=== PATIENT | female | born 1980 | race American Indian/Alaskan Native ===

== ENCOUNTER 2016-12-15 23:20 | Inpatient (IN) | payer OTHER ==
[2016-12-15 23:49] LABS: RBC URINE 13 /hpf (0-3); URINE BACTERIA FEW (<OCC); URINE BILIRUBIN NEGATIVE (NEGATIVE); URINE BLOOD 2+ (NEGATIVE); URINE COLOR Yellow (YELLOW); URINE GLUCOSE (UA) NORMAL (Normal); URINE KETONE 1+ mg/dL (NEGATIVE); URINE LEUKOCYTE ESTERASE 3+ Leu/uL (Negative); URINE PROTEIN NEGATIVE (NEGATIVE); URINE UROBILINOGEN NORMAL mg/dL (0.2-1.0); WBC URINE 151 /hpf (0-5)
--- NOTE | 2016-12-16 00:02 | OBHP ---
Datetime: 12/15/2016 23:58 IP Adm Impression: , intrauterine IP Chief Complaint Other: fever IP Admit Plan: Admit to unit Admit Comment, IP Provider: - at 21weeks came with c/o pain on the left side and increase freque ncy and fever since yesterday . no ctxs,vb, lof+fm. 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 to pearl technician ivf cbc/cmp/t *s rocephin urine culture dr jimenez aware Pelvic Type - PN: Adequate Extremities - PN: Normal Abdomen - PN: Normal Back - PN: Normal Breast - PN: Not Done Lungs - PN: Normal Heart - PN: Normal Thyroid - PN: Not Done Neurologic - PN: Normal HEENT - PN: Normal General - PN: Normal FHR - Baseline A Provider: 170 Contraction Comments Provider: no Comments, ACOG Physical Exam: gravid,non tendr ve closed ext no edema,no calf ten +left cva ten EGA AdmitDate IP: 21.2 IP Indication for Induction Oth: pykonephritis IP Chief Complaint: Maternal discomfort NICHD Variability Prov Fetus A: Moderate 6-25bpm Genitourinary Exam: Normal DTRs - PN: Normal
[2016-12-16] MEDS ORDERED: Lactated Ringer's 500 ML IV ONE (00:04)
[2016-12-16 00:48] LABS: HEMATOCRIT 37.3 % (34.0-47.0); MEAN CELL VOLUME 84.9 fL (81.0-99.0); MEAN CORPUSCULAR HEMOGLOBIN 28.7 pg (27.0-31.0); MEAN CORPUSCULAR HGB CONC 33.8 g/dL (33.0-37.0); RED CELL DISTRIBUTION WIDTH 12.6 % (11.5-14.5)
[2016-12-16 00:51] LABS: WHITE BLOOD COUNT 22.8 K/uL (4.8-10.8)
[2016-12-16] MEDS ORDERED: cefTRIAXone 2 GM in Sodium Chloride 0.9% 100 ML IVPB SCH (01:00)
[2016-12-16 01:08] LABS: CHLORIDE 98 mmol/L (98-107); POTASSIUM 4.4 mmol/L (3.6-5.2); SODIUM 132 mmol/L (132-148)
[2016-12-16 01:10] LABS: ALB/GLOB RATIO 1.1 (1.0-2.1); AST/SGOT 22 U/L (14-36); BILIRUBIN,TOTAL 1.1 mg/dL (0.2-1.3); CARBON DIOXIDE 23 mmol/L (22-30); GFR AFRICAN-AMERICAN > 60; TOTAL PROTEIN 8.1 g/dL (6.3-8.3)
[2016-12-16 01:11] LABS: ALKALINE PHOSPHATASE 80 U/L (38-126); ALT/SGPT 24 U/L (9-52); BLOOD UREA NITROGEN 5 mg/dL (7-17); CALCIUM 9.8 mg/dl (8.6-10.4); GLUCOSE,RANDOM 91 mg/dL (65-105)
[2016-12-16] MEDS ORDERED: Acetaminophen-Codeine 300/30 mg Tab PO PRN (04:32)
--- NOTE | 2016-12-16 08:22 | OBPN ---
Datetime: 12/16/2016 08:16 IP Progress Plan Other: Transfer to L_D for expectant management IP Progress Impression: Rupture of membranes IP Informed Consent Obtain: Vaginal Delivery; Risks, Benefits and Alternatives Discussed IP Procedures: Sterile Vag Exam Membranes, Provider: Ruptured Gestation - Est Wks by US: 21.0 Vital Signs Provider: Reviewed; Within Normal Limits Dilatation, Provider: 8 Effacement, Provider: 100 Station, Provider: 0 Datetime: 12/15/2016 23:58 Contraction Comments Provider: no FHR - Baseline A Provider: 170 HEATHER Variability Prov Fetus A: Moderate 6-25bpm
--- NOTE | 2016-12-16 09:00 | OBPN ---
Datetime: 12/16/2016 08:53 IP Progress Plan Other: Put on Ampicillin and Gentamycin IP Progress Impression Other: Patient states has been leaking clear fluid for 3 days requiring IP Progress Impression: Chorioamnionitis IP Informed Consent Obtain: Vaginal Delivery; Risks, Benefits and Alternatives Discussed IP Progress Plan: Antibiotic therapy; Anticipate Vaginal Delivery IP Fetus A Comments: Bedside sonogram revealed Anhydramnios, no heart activity and no mo vement. Gestation - Est Wks by US: 21.0 IP Progress Note Comment: Chorioamninitis, Prolong PPROM. Advanced cervical Dilatation. Put on Antib iotics, Anticipate Vaginal Delivery Vital Signs Provider: Reviewed; Within Normal Limits Datetime: 12/15/2016 23:58 Contraction Comments Provider: none
--- NOTE | 2016-12-16 13:39 | OBPN ---
Datetime: 12/16/2016 13:32 IP Progress Impression: Normal progression of labor IP Informed Consent Obtain: Vaginal Delivery; Risks, Benefits and Alternatives Discussed IP Procedures: Sterile Vag Exam IP Progress Plan: Continue present management; Anticipate Vaginal Delivery Membranes, Provider: Ruptured Gestation - Est Wks by US: 21.0 IP Progress Note Comment: Patient has no urge to push. Will stimulate labor Pitocin infusion. Vital Signs Provider: Reviewed; Within Normal Limits Dilatation, Provider: 10 Effacement, Provider: 100 Station, Provider: 1
[2016-12-16] MEDS ORDERED: Oxytocin 30 UNIT 30 UNITS/500 ML BAG IV ONE (23:25)
[2016-12-17] MEDS ORDERED: Midazolam 2 MG/2 ML VIAL ONE (00:25)
[2016-12-17] MEDS ORDERED: Propofol 10 mg/ml Inj (20 ML) ONE (00:25)
[2016-12-17] MEDS ORDERED: Dexamethasone 4 mg/1 ml IVP PRN (01:05)
[2016-12-17] MEDS ORDERED: DiphenhydrAMINE 50 mg/ml Inj IVP PRN (01:05)
--- NOTE | 2016-12-17 01:13 | OBDS ---
DELIVERY PERSONNEL Delivery Doctor: Jacqueline, K. MD MATERNAL INFORMATION Delivery Anesthesia: None LABOR SUMMARY EDC: 04/26/2017 00:00 VAGINAL DELIVERY Laceration Repair Note: to a non-viable boy. Placenta retained and taken to O.R for removal of p lacenta and curettage BABY A INFORMATION Delivery Date/Time: 12/16/2016 20:45 Method of Delivery: Vaginal SHOULDER DYSTOCIA BABY A Delivery Date/Time: 12/16/2016 20:45 INFANT INFORMATION BABY A Gestational Age at Delivery: 21.2 Sex: Male WEIGHT/LENGTH BABY A Birthweight (gms): 325 Weight (lb): 0 Weight (oz): 11 Length Inches: 25.00 Length cms: 63.5
[2016-12-17] MEDS ORDERED: Lactated Ringer's 1,000 ML IV SCH (01:15)
[2016-12-17 06:37] LABS: HEMATOCRIT 25.4 % (34.0-47.0); MEAN CORPUSCULAR HEMOGLOBIN 28.6 pg (27.0-31.0); MEAN CORPUSCULAR HGB CONC 33.6 g/dL (33.0-37.0); MEAN PLATELET VOLUME 8.7 fL (7.2-11.7); RED CELL DISTRIBUTION WIDTH 12.6 % (11.5-14.5); WHITE BLOOD COUNT 14.8 K/uL (4.8-10.8)
--- NOTE | 2016-12-17 07:30 | OBPPN ---
Datetime: 12/17/2016 07:26 PP Pain Prov: Within normal limits PP Nausea Prov: Denies PP Flatus Prov: Yes PP BM Prov: Yes PP Breasts Prov: Normal PP Heart Prov: Normal PP Lungs Prov: Normal PP Abdomen/Uterus Prov: Normal PP Lochia Prov: Normal PP Vulva/Perineum Prov: Normal PP CVA Tenderness Prov: Normal PP Extremities Prov: Normal PP C/S Incision Prov: Not Applicable PP Progress Prov: Not Applicable PP Comments Phys Exam Prov: Uterus firm and contracted. Lochia minimal PP Impression Prov: Normal progression; Endometritis PP Plan Prov: Continue present management PP Plan Other Prov: Continue IV Antibiotics PP Progress Note Prov: Chorioamnitics. Afebrile. Anemia. Put on iron PO IP PP Procedures: None Vital Signs Provider PP: Reviewed; Within Normal Limits
--- NOTE | 2016-12-17 07:38 | OP ---
PROCEDURE DATE: 12/17/2016 PREOPERATIVE DIAGNOSIS: Retained placenta at delivery of 21 week gestation. POSTOPERATIVE DIAGNOSIS: Retained placenta at delivery of 21 week gestation. PROCEDURE: Removal of placenta and uterine curettage. SURGEON: Dr. Phillips. SHELL TRIM TOOL SETTER: None. ANESTHESIA: General given by Dr. Montanez. FINDINGS: The placenta was entirely retained in the uterus. The cervix was dilated. DESCRIPTION OF PROCEDURE: Under adequate general anesthesia, the patient was placed in the lithotomy position. The perineum and vagina were prepped and draped in the usual sterile fashion. The cervix was then exposed using the bivalved speculum. The anterior lip of the cervix was grasped with ring forceps. The placenta was removed piecemeal using the ring forceps as well as the horseshoe curettes . Large amounts of placenta tissue were removed as well as blood clots. The uterus was felt to be e mpty. The patient was awoken from anesthesia and taken to the recovery room in good condition. The estimated blood loss was about 700 mL. Fluids received were 1000 mL crystalloids. The sponge counts were correct x 2. Rene Phillips MD cc: [id number] TT: 12/17/2016 07:37:25 pa
[2016-12-18 08:18] VITALS: BP 102/68; PULSE 85; RESP 18; TEMP 98; O2SAT 98
--- NOTE | 2016-12-18 13:01 | PCM.PSYCH ---
Initial Psychiatric Evaluation - Initial Psychiatric Evaluation Type of Admission: Voluntary Legal Status: Capacity Chief Complaint (in patient's own words): "I feel okay." History of Present Illness and Precipitating Events: Pt is a 36 year old female who is single and lives by herself. 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 Psychiatry consulted for grief. Pt states she had intrauterine demise at 21 weeks gestation. She is upset and states she "feels awkward." Pt states her sleep has been so-so, and she has a decreased appetite. Pt denies suicidal ideation, hallucinations, paranoia. Pt states she does not use drugs and only drinks alcohol occasionally. Pt states she has a good support system as home, and plans to go back to work upon discharge. Pt states she will also try therapy. Past psych: denies family psych : denies Medical: Denies Current Medications: Active Medications Generic Name Dose Route Start Last Admin Trade Name Freq PRN Reason Stop Dose Admin Acetaminophen 650 mg 12/16/16 00:05 12/16/16 19:36 Tylenol 325mg Tab PO 650 mg Q6 PRN Administration Fever >100.4 F Ferrous Sulfate 325 mg 12/17/16 10:00 12/18/16 09:49 Feosol PO 325 mg TID RERE Administration Ampicillin 2 gm/ Sodium 100 mls @ 50 mls/hr 12/16/16 11:00 12/18/16 10:42 Chloride IVPB 50 mls/hr Q6H RERE Administration Gentamicin Sulfate 80 mg/ 102 mls @ 100 mls/hr 12/16/16 10:00 12/18/16 09:50 Sodium Chloride IVPB 100 mls/hr Q8H RERE Administration Past Psychiatric History - Past Psychiatric History Previous Treatment History: None Pertinent Medical Hx (Current Medical&Sleep Prob, Allergies): Allergies Allergy/AdvReac Type Severity Reaction Status Date / Time No Known Allergies Allergy Verified 12/15/16 23:26 Cephalexin [Keflex] 500 mg PO Q6 #28 capsule 12/17/16 Review of Systems - Review of Systems All systems: reviewed and no additional remarkable complaints except - Psychiatric Psychiatric: Abnormal Sleep Pattern, Change in Appetite, Depression. absent: Hallucinations, Homicidal Ideation, Paranoia, Suicidal Ideation Mental Status Examination - Personal Presentation Personal Presentation: Looks stated age - Affect Affect: Depressed - Motor Activity Motor Activity: Calm - Reliability in Providing Information Reliability in Providing Information: Good - Speech Speech: Organized - Mood Mood: Depressed - Formal Thought Process Formal Thought Process: No Impairment - Obsessions/Compulsions Obsessions: No Compulsions: No - Cognitive Functions Orientation: Person, Place, Situation, Time Sensorium: Alert Attention/Concentration: Attentive Abstract Thinking: [place] Estimate of Intelligence: Average Judgement: Intact, as evidence by: Good judgement Memory: Recent intact, as evidence by: Ability to recall events of the day, Remote intact, as evidenced by: Abilit to recall sig. life events - Strength & Assets Inventory Strength & Assets Inventory: Family support, Employment status - Limitations Limitations: Living alone DSM 5 DX - DSM 5 DSM 5 Diagnosis: Adjustment d/o - with depressive sxs Bereavement - Recommended/Plan of Treatment Treatment Recommendations and Plan of Treatment: Grief/bereavement/depression: - Follow up out-patient therapy - Support and psychoeducation given - Return to ER if gets worse or does not improve 31 min
== END 2016-12-18 17:35 | disposition home or self-care (01) | DRG 767 ==
LOC: C.EROB 23:20 → C.4M 12-16 00:16 → C.4D 12-16 01:16 → C.4M 12-16 03:36 → C.4D 12-16 08:55 → C.4M 12-17 02:55
PROVIDERS: ADMIT Obstetrics & Gynecology; ATTEND Obstetrics & Gynecology
PROC: 10E0XZZ Delivery of Products of Conception, External Approach (ICD-10-PCS; principal; 2016-12-16)
PROC: 10D17ZZ Extraction of Products of Conception, Retained, Via Natural or Artificial Opening (ICD-10-PCS; 2016-12-16)
PROC: GZ56ZZZ Individual Psychotherapy, Supportive (ICD-10-PCS; 2016-12-16)
DX: O36.4XX0 Maternal care for intrauterine death, not applicable or unspecified (principal); O41.1220 Chorioamnionitis, second trimester, not applicable or unspecified; O26.892 Other specified pregnancy related conditions, second trimester; D62 Acute posthemorrhagic anemia; R50.9 Fever, unspecified; F43.29 Adjustment disorder with other symptoms; Z37.1 Single stillbirth; Z3A.21 21 weeks gestation of pregnancy; Z63.4 Disappearance and death of family member; O99.342 Other mental disorders complicating pregnancy, second trimester; O42.012 Preterm premature rupture of membranes, onset of labor within 24 hours of rupture, second trimester

== ENCOUNTER 2018-04-29 17:51 | Emergency (ER) | payer BC, OTHER ==
[2018-04-29 17:56] VITALS: BP 146/95; PULSE 90; TEMP 98; O2SAT 100
[2018-04-29] MEDS ORDERED: Bacitracin 500 Units/gm Oint Foilpak UD TOP ONE (18:39)
[2018-04-29] MEDS ORDERED: Lidocaine 2% Inj (20ml) INFIL ONE (18:39)
[2018-04-29] MEDS ORDERED: Lidocaine 2% MPF (5 ml) Inj ONE (18:46)
[2018-04-29] MEDS ORDERED: Bacitracin 500 Units/gm Oint Foilpak UD ONE (18:48)
--- NOTE | 2018-04-29 19:23 | C.PDOC ---
History Of Present Illness 37 y/o female presents to ED for evaluation of laceration to left thumb sustained at 2am when reaching into a cabinet and blade cut her thumb. Patient denies fever, change in sensation, weakness, or any other complaints at this time. Time Seen by Provider: 04/29/18 18:09 Chief Complaint (Nursing): Abnormal Skin Integrity History Per: Patient History/Exam Limitations: no limitations Onset/Duration Of Symptoms: Hrs Current Symptoms Are (Timing): Still Present Past Medical History Reviewed: Historical Data, Nursing Documentation, Vital Signs Vital Signs: Last Vital Signs Temp 98 F 04/29/18 17:53 Pulse 90 04/29/18 17:53 Resp 18 04/29/18 17:53 BP 146/95 H 04/29/18 17:53 Pulse Ox 100 04/29/18 17:53 - Medical History PMH: Asthma Surgical History: No Surg Hx - [facility] Procedures DELIVERY OF PRODUCTS OF CONCEPTION, EXTERNAL APPROACH (12/16/16) EXTRACTION OF PRODUCTS OF CONCEPTION, RETAINED, VIA OPENING (12/16/16) INDIVIDUAL PSYCHOTHERAPY, SUPPORTIVE (12/16/16) Family History: States: No Known Family Hx - Social History Hx Alcohol Use: Yes Hx Substance Use: No - Immunization History Hx Tetanus Toxoid Vaccination: No Hx Influenza Vaccination: No Hx Pneumococcal Vaccination: No Review Of Systems Musculoskeletal: Positive for: Hand Pain Skin: Negative for: Rash, Bruising Neurological: Negative for: Weakness, Numbness Physical Exam - Physical Exam Appears: Non-toxic, No Acute Distress Skin: Warm, Dry, No Rash, Other (2cm laceration to palmar aspect of left thumb) Head: Atraumatic, Normacephalic Eye(s): bilateral: Normal Inspection, EOMI Oral Mucosa: Moist Neck: Normal ROM, Supple Chest: Symmetrical Respiratory: No Accessory Muscle Use Extremity: Normal ROM, Capillary Refill (<2 seconds), No Deformity, No Swelling Pulses: Left Radial: Normal Neurological/Psych: Oriented x3, Normal Motor, Normal Sensation ED Course And Treatment O2 Sat by Pulse Oximetry: 100 (RA) Pulse Ox Interpretation: Normal Progress Note: Xray was offered though pt declined. Discussed concern for delayed wound closure and strict wound care. Pt agreed upon closure. Discussed signs and symptoms of concern, wound check in2 days and suture removal in 7. Finger splint applied by diesel automotive technician. Laceration - Laceration Repair left thumb Wound Length (In cm): 2cm Description Of Wound: Linear Wound Cleansed With: Betadine, Sterile Saline Anesthesia: Lidocaine 1% Wound Examination: Irrigated With Saline, No FB With Wound Exploration, No Tendon Injury With Wound Exploration Wound Closure: Suture Suture Technique And Material Used: Prolene (5-O) Wound Complexity: Simple Disposition - Disposition Disposition: HOME/ ROUTINE Disposition Time: 19:21 Condition: STABLE Additional Instructions: Wound check in 2 days. Suture removal in 7 days. Watch for signs of infection including redness, swelling, or discharge. Prescriptions: Bacitracin OINT 1 applic TP BID #1 tube Cephalexin [cephalexin] 500 mg PO BID #14 cap Instructions: Laceration Repair With Stitches (DC) Forms: [employer] (Syriac), Work Excuse - Clinical Impression Clinical Impression: Laceration of finger - PA / FIRE MARSHAL / Resident Statement MD/DO has reviewed & agrees with the documentation as recorded. - Scribe Statement The provider has reviewed the documentation as recorded by the Neno Collado All medical record entries made by the Portilloibdelfino were at my direction and personally dictated by me. I have reviewed the chart and agree that the record accurately reflects my personal performance of the history, physical exam, medical decision making, and the department course for this patient. I have also personally directed, reviewed, and agree with the discharge instructions and disposition.
[2018-04-29] MEDS ORDERED: Tdap Vaccine 0.5 ml Vial (10-64 yrs) IM ONE ×2 (19:26→19:30)
[2018-04-29 19:38] VITALS: RESP 20
== END 2018-04-29 19:38 | disposition home or self-care (01) ==
LOC: C.ER 17:51
DX: S61.012A Laceration without foreign body of left thumb without damage to nail, initial encounter (principal); W45.8XXA Other foreign body or object entering through skin, initial encounter

== ENCOUNTER 2018-05-01 09:35 | Emergency (ER) | payer BC ==
[2018-05-01 09:40] VITALS: BMI 37.5
[2018-05-01 09:49] VITALS: BP 122/86; PULSE 18; TEMP 98.4; O2SAT 100
--- NOTE | 2018-05-01 10:24 | C.PDOC ---
Time Seen by Provider: 05/01/18 10:02 Chief Complaint (Nursing): Wound Check Past Medical History Vital Signs: Last Vital Signs Temp 98.4 F 05/01/18 09:40 Pulse 18 L 05/01/18 09:40 Resp 90 H 05/01/18 09:40 BP 122/86 05/01/18 09:40 Pulse Ox 100 05/01/18 09:40 - Medical History PMH: Asthma - [facility] Procedures DELIVERY OF PRODUCTS OF CONCEPTION, EXTERNAL APPROACH (12/16/16) EXTRACTION OF PRODUCTS OF CONCEPTION, RETAINED, VIA OPENING (12/16/16) INDIVIDUAL PSYCHOTHERAPY, SUPPORTIVE (12/16/16) - Social History Hx Alcohol Use: Yes Hx Substance Use: No - Immunization History Hx Tetanus Toxoid Vaccination: No Hx Influenza Vaccination: No Hx Pneumococcal Vaccination: No ED Course And Treatment O2 Sat by Pulse Oximetry: 100 Disposition Counseled Patient/Family Regarding: Diagnosis - Disposition Disposition: HOME/ ROUTINE Disposition Time: 10:22 Condition: STABLE Instructions: Wound Care (DC) Forms: [facility] (Danish), General Discharge Instructions, Work Excuse - POA Present On Arrival: None - Clinical Impression Clinical Impression: Change of dressing
[2018-05-01 10:36] VITALS: RESP 17
== END 2018-05-01 10:35 | disposition home or self-care (01) ==
LOC: C.ER 09:35
DX: Z48.01 Encounter for change or removal of surgical wound dressing (principal)

== ENCOUNTER 2018-05-08 18:24 | Emergency (ER) | payer BC ==
[2018-05-08 18:24] VITALS: BMI 37.5
--- NOTE | 2018-05-08 19:37 | C.PDOC ---
History Of Present Illness 37 y/o female presents to the ED for suture removal to the left thumb. Sutures were placed 10 days ago. Patient denies any fever or chills. Otherwise she denies any complications, increased warmth, or discharge from the site. Time Seen by Provider: 05/08/18 19:01 Chief Complaint (Nursing): Suture/Staple Removal History Per: Patient History/Exam Limitations: no limitations Onset/Duration Of Symptoms: Days Ago Current Symptoms Are (Timing): Still Present Past Medical History Reviewed: Historical Data, Nursing Documentation, Vital Signs Vital Signs: Last Vital Signs Temp 98.2 F 05/08/18 18:45 Pulse 84 05/08/18 18:45 Resp 16 05/08/18 18:45 BP 129/83 05/08/18 18:45 Pulse Ox 100 05/08/18 18:45 - Medical History PMH: Asthma - [facility] Procedures DELIVERY OF PRODUCTS OF CONCEPTION, EXTERNAL APPROACH (12/16/16) EXTRACTION OF PRODUCTS OF CONCEPTION, RETAINED, VIA OPENING (12/16/16) INDIVIDUAL PSYCHOTHERAPY, SUPPORTIVE (12/16/16) Family History: States: No Known Family Hx - Social History Hx Alcohol Use: Yes Hx Substance Use: No - Immunization History Hx Tetanus Toxoid Vaccination: No Hx Influenza Vaccination: No Hx Pneumococcal Vaccination: No Review Of Systems Constitutional: Negative for: Fever, Chills Skin: Positive for: Lesions (healing laceration, sutures intact). Negative for: Rash Neurological: Negative for: Weakness, Numbness Physical Exam - Physical Exam Appears: Non-toxic, No Acute Distress Skin: Warm, Dry Extremity: Normal ROM, No Tenderness, Capillary Refill (less than 2 sec), No Swelling, Other (Well healing sutured laceration to left 1st digit, no increased warmth or erythema, no discharge) ED Course And Treatment O2 Sat by Pulse Oximetry: 100 (RA) Pulse Ox Interpretation: Normal Medical Decision Making Medical Decision Making: Plan: 2 sutures removed by me without difficulty. Tolerated well by pt. Pt stable for discharge home. Disposition Counseled Patient/Family Regarding: Diagnosis, Need For Followup - Disposition Referrals: Adam Hernandez MD [Medical Doctor] - Disposition: HOME/ ROUTINE Disposition Time: 19:36 Condition: GOOD Additional Instructions: Thumb will still be tender for next 1-2 weeks, Take Tylneol or Motrin. Follow up with PMD. Instructions: Stitches Removal Forms: General Discharge Instructions, [facility] (Kyrgyz), Work Excuse - Clinical Impression Clinical Impression: Removal of suture - PA / COMMUNITY SERVICE WORKER / Resident Statement MD/DO has reviewed & agrees with the documentation as recorded. - Scribe Statement The provider has reviewed the documentation as recorded by the Scribe (Paris Keating) All medical record entries made by the Scribe were at my direction and personally dictated by me. I have reviewed the chart and agree that the record accurately reflects my personal performance of the history, physical exam, medical decision making, and the department course for this patient. I have also personally directed, reviewed, and agree with the discharge instructions and disposition.
[2018-05-08 19:46] VITALS: BP 118/79; PULSE 77; RESP 17; TEMP 98
[2018-05-08 20:25] VITALS: O2SAT 100
== END 2018-05-08 19:46 | disposition home or self-care (01) ==
LOC: C.ER 18:24
DX: Z48.02 Encounter for removal of sutures (principal)

== ENCOUNTER 2018-09-05 15:38 | Emergency (ER) | payer BC ==
[2018-09-05 15:38] VITALS: BMI 37.5
[2018-09-05 16:05] VITALS: TEMP 98.2
--- NOTE | 2018-09-05 16:31 | C.PDOC ---
History Of Present Illness 38 y/o female pt with hx of asthma c/o congested headache, dizziness, non- productive cough, body aches and warmth for x1 day. Pt is 16 weeks gestation, G 2, P 0. Pt denies SOB, chest pain, vomiting, diarrhea, sick contacts, or travel history. Pt saw her doctor for her last week and is getting care. Time Seen by Provider: 09/05/18 16:16 Chief Complaint (Nursing): Dizziness/Lightheaded History Per: Patient History/Exam Limitations: no limitations Onset/Duration Of Symptoms: Days (x1 ) Current Symptoms Are (Timing): Still Present Past Medical History Reviewed: Historical Data, Nursing Documentation, Vital Signs Vital Signs: Last Vital Signs Temp 98.2 F 09/05/18 15:50 Pulse 101 H 09/05/18 15:50 Resp 18 09/05/18 15:50 BP 118/80 09/05/18 15:50 Pulse Ox 99 09/05/18 15:50 - Medical History PMH: Asthma - [facility] Procedures DELIVERY OF PRODUCTS OF CONCEPTION, EXTERNAL APPROACH (12/16/16) EXTRACTION OF PRODUCTS OF CONCEPTION, RETAINED, VIA OPENING (12/16/16) INDIVIDUAL PSYCHOTHERAPY, SUPPORTIVE (12/16/16) Family History: States: No Known Family Hx - Social History Hx Alcohol Use: Yes Hx Substance Use: No - Immunization History Hx Tetanus Toxoid Vaccination: Yes Hx Influenza Vaccination: Yes Hx Pneumococcal Vaccination: No Review Of Systems Except As Marked, All Systems Reviewed And Found Negative. Constitutional: Negative for: Other (sick contact; travel history ) Cardiovascular: Negative for: Chest Pain Respiratory: Positive for: Cough (non-productive ). Negative for: Shortness of Breath Gastrointestinal: Negative for: Vomiting, Diarrhea Musculoskeletal: Positive for: Other (body ache ) Skin: Positive for: Other (warmth ) Neurological: Positive for: Headache (congested), Dizziness Physical Exam - Physical Exam Appears: Non-toxic, No Acute Distress Skin: Warm, Dry, No Rash Head: Normacephalic Eye(s): bilateral: Normal Inspection Ear(s): Bilateral: Normal Nose: Normal Oral Mucosa: Moist Throat: Normal Neck: Normal ROM, Supple Chest: Symmetrical Cardiovascular: Rhythm Regular Respiratory: Normal Breath Sounds, No Rales, No Rhonchi, No Wheezing Gastrointestinal/Abdominal: Soft, No Tenderness, Other (gravid) Neurological/Psych: Oriented x3, Normal Speech, Normal Cognition ED Course And Treatment O2 Sat by Pulse Oximetry: 99 (RA) Pulse Ox Interpretation: Normal Medical Decision Making Medical Decision Making: Impression: KATELYN starr Plans: -- UA -- Flu swab -- tylenol -- claritin Disposition - Disposition Referrals[place] [facility] [place] [facility] [Outside] [facility] [Outside] Disposition: HOME/ ROUTINE Disposition Time: 17:31 Condition: GOOD Additional Instructions: Please take tylenol and zyrtec as directed. Advise bedrest, po hydration and follow up with your pcp. Prescriptions: Acetaminophen [Tylenol] 650 mg PO Q4 #20 capsule Cetirizine HCl [Zyrtec] 10 mg PO DAILY #5 tab.rapdis Instructions: Viral Upper Respiratory Infection, Adult (DC) Forms: [employer] ([place] Islander), Work Excuse - Clinical Impression Clinical Impression: Viral upper respiratory infection - Scribe Statement The provider has reviewed the documentation as recorded by the Scribe Isis Martinez Provider Attestation: All medical record entries made by the Scribe were at my direction and personally dictated by me. I have reviewed the chart and agree that the record accurately reflects my personal performance of the history, physical exam, medical decision making, and the department course for this patient. I have also personally directed, reviewed, and agree with the discharge instructions and disposition.
[2018-09-05 17:32] VITALS: BP 119/77; PULSE 69; RESP 16
[2018-09-06 15:14] VITALS: O2SAT 99
== END 2018-09-05 17:31 | disposition home or self-care (01) ==
LOC: C.ER 15:38
DX: J06.9 Acute upper respiratory infection, unspecified (principal)

== ENCOUNTER 2018-11-12 12:35 | Emergency (ER) | payer BC | END 2018-11-12 14:12 | disposition home or self-care (01) | LOC: C.EROB 12:35 | CPT/HCPCS: 96372; 99284; J0702 ==

== ENCOUNTER 2018-11-13 13:34 | Emergency (ER) | payer BC | END 2018-11-13 15:35 | disposition home or self-care (01) | LOC: C.EROB 13:34 | CPT/HCPCS: 96372; 99283; J0702 ==

== ENCOUNTER 2018-11-23 23:20 | Observation (INO) | payer BC ==
[2018-11-23 23:45] VITALS: BMI 38.7
[2018-11-24 00:38] LABS: SQUAMOUS EPITHIAL 6 /hpf (0-5); URINE BACTERIA OCC (<OCC); URINE BILIRUBIN NEGATIVE (NEGATIVE); URINE BLOOD NEGATIVE (NEGATIVE); URINE CLARITY Hazy (Clear); URINE COLOR Yellow (YELLOW); URINE GLUCOSE (UA) NORMAL (Normal); URINE LEUKOCYTE ESTERASE NEG Leu/uL (Negative); URINE PROTEIN NEGATIVE (NEGATIVE); URINE UROBILINOGEN NORMAL mg/dL (0.2-1.0)
[2018-11-24] MEDS ORDERED: Lactated Ringer's 1,000 ML IV ONE (01:19)
[2018-11-24 01:56] LABS: BASO % 0.4 % (0.0-2.0); EOS # 0.1 K/uL (0.0-0.7); EOS % 0.5 % (0.0-4.0); LYMPH # 1.9 K/uL (1.0-4.3); LYMPH % 14.7 % (20.0-40.0); MEAN CELL VOLUME 87.3 fL (81.0-99.0); MEAN CORPUSCULAR HEMOGLOBIN 29.7 pg (27.0-31.0); MEAN PLATELET VOLUME 9.1 fL (7.2-11.7); MONO # 0.9 K/uL (0.0-0.8); MONO % 6.5 % (0.0-10.0); NEUT # 10.2 K/uL (1.8-7.0); NEUT % 77.9 % (50.0-75.0); RBC 4.04 Mil/uL (3.80-5.20); RED CELL DISTRIBUTION WIDTH 12.9 % (11.5-14.5); WHITE BLOOD COUNT 13.1 K/uL (4.8-10.8)
[2018-11-24 02:12] LABS: ALB/GLOB RATIO 1.1 (1.0-2.1); ALBUMIN 3.5 g/dL (3.5-5.0); ALT/SGPT 21 U/L (9-52); AST/SGOT 15 U/L (14-36); BLOOD UREA NITROGEN 11 mg/dL (7-17); CALCIUM 9.8 mg/dl (8.6-10.4); GFR NON-AFRICAN AMERICAN > 60
--- NOTE | 2018-11-24 02:13 | OBHP ---
Datetime: 11/24/2018 01:10 IP Adm Impression: , intrauterine ; No Active Labor; Intact Membranes IP Admit Plan: Initiate labor protocol Admit Comment, IP Provider: 38 yo female with and IUP at 27.4 weeks with an EDC 02/19/19 and presents with c/o of low pelvic pain that comes and goes and for the past few hours and associated wi th increased frequency of urination. Admits to drinking little water. Denies any LOF, VB or VD and ad mits to adequate FM. PMHx: Asthma PSHx: TOP x 1 Knee Sx Left ovarian cystectomy 2003 Cerclage 09/23/18 for short cervix Meds: PNV Progesterone Vaginal daily and IM weekly Ventolin inhaler OB Hx: 1 VD at 5 months, 1 TOP Social Hx: Denies Smoking, alcohol and Street Drugs Fam Hx: NC PE: as noted above A/P 27.4 weeks gestation Hx of delivery Cerclage in place for Cervical Shortening S/P Celestone x 2 doses on 11/12/18 Irregular contractions and cx closed with cerclage in place Reassuring FHT's On Progesterone IM and Vaginal Continue Present Management Labs, IV fluids ordered Pelvic Type - PN: Adequate Extremities - PN: Normal Abdomen - PN: Normal Back - PN: Normal Breast - PN: Not Done Lungs - PN: Normal Heart - PN: Normal Thyroid - PN: Normal Neurologic - PN: Normal HEENT - PN: Normal General - PN: Normal Presentation-Admit: Vertex FHR - Baseline A Provider: 140 Membranes, Provider: Intact Contraction Comments Provider: Irregular Gestation - Est Wks by US: 27.4 IP Hx Assessment: No records available EGA AdmitDate IP: 27.4 Vital Signs Provider: Reviewed; Within Normal Limits IP Chief Complaint: Uterine contractions; Maternal discomfort NICHD Variability Prov Fetus A: Moderate 6-25bpm NICHD Accel Fetus A IP Provider: 10X10 NICHD Decel Fetus A IP Provider: None Dilatation, Provider: 0 Effacement, Provider: 50 Station, Provider: -3 Genitourinary Exam: Normal DTRs - PN: Normal
--- NOTE | 2018-11-24 02:53 | OBADHP ---
Datetime: 11/24/2018 01:10 Admit Comment, IP Provider: 38 yo female with and IUP at 27.4 weeks with an EDC 02/19/19 and presents with c/o of low pelvic pain that comes and goes and for the past few hours and associated wi th increased frequency of urination. Admits to drinking little water. Denies any LOF, VB or VD and ad mits to adequate FM. PMHx: Asthma PSHx: TOP x 1 Knee Sx Left ovarian cystectomy 2002 Cerclage 09/23/18 for short cervix Meds: PNV Progesterone Vaginal daily and IM weekly Ventolin inhaler OB Hx: 1 VD at 5 months, 1 TOP Social Hx: Denies Smoking, alcohol and Street Drugs Fam Hx: NC PE: as noted above A/P 27.4 weeks gestation Hx of delivery Cerclage in place for Cervical Shortening S/P Celestone x 2 doses on 11/12/18 Irregular contractions and cx closed with cerclage in place Reassuring FHT's On Progesterone IM and Vaginal Continue Present Management Labs, IV fluids ordered Will admit for observation, per Dr. Morgan Ag give Terbutaline is need be Pelvic Type - PN: Adequate Extremities - PN: Normal Abdomen - PN: Normal Back - PN: Normal Breast - PN: Not Done Lungs - PN: Normal Heart - PN: Normal Thyroid - PN: Normal Neurologic - PN: Normal HEENT - PN: Normal General - PN: Normal Presentation-Admit: Vertex FHR - Baseline A Provider: 140 Membranes, Provider: Intact Contraction Comments Provider: Irregular Gestation - Est Wks by US: 27.4 IP Hx Assessment: No records available Vital Signs Provider: Reviewed; Within Normal Limits IP Chief Complaint: Uterine contractions; Maternal discomfort NICHD Variability Prov Fetus A: Moderate 6-25bpm NICHD Accel Fetus A IP Provider: [id number] NICHD Decel Fetus A IP Provider: None Dilatation, Provider: 0 Effacement, Provider: 50 Station, Provider: -3 Genitourinary Exam: Normal DTRs - PN: Normal EGA AdmitDate IP: 27.4 IP Adm Impression: , intrauterine ; No Active Labor; Intact Membranes IP Admit Plan: Observation/Evaluation Datetime: 11/13/2018 14:50 IP Chief Complaint Other: shrt cervix/ steroid administration FHR Category Provider Fetus A: Category I Datetime: 11/12/2018 13:59 Comments, ACOG Physical Exam: General: No Acute distress Cardiac Respirtory Abdominal: fundal height- 28
[2018-11-24] MEDS: Lactated Ringer's 1,000 ML IV SCH ×2 (03:00→10:17)
[2018-11-24] MEDS ORDERED: cefTRIAXone IV 1 gm in Dextros 1 GM in Dextrose 5% In Water 50 ML IVPB SCH (03:15)
--- NOTE | 2018-11-24 12:22 | US ---
Indication: Labor. Irregular FHT's Comparison: None available Technique: Real-time ultrasound was performed through the pelvis. Findings: At least 2 probable uterine fibroids; 7.5 x 6.6 x 7.2 cm lower uterine segment/mid right uterus and 2.1 x 1.1 x 2.0 cm mid uterus. There is a single living fetus in cephalic presentation. Amniotic fluid volume is within normal limits. Posterior fundal placenta without evidence of previa. Echogenic probable debris layering upon the internal cervical os. Apparent funneling of the cervix which appears approximately 1.3 cm in length. Amniotic fluid index measures 11.4 cm, within normal limits. There are no adnexal masses or cysts evident. The study was performed for emergent evaluation, and the whole anatomic survey of the fetus was not performed. This should be performed on an outpatient elective basis as clinically warranted. Measurements and calculations: Fetus has a composite sonographic age of 27 weeks 2 days. This calculation is based on the biparietal diameter, head circumference, abdominal circumference, and femur length. Estimated heart rate 138 beats per min. Estimated weight 1022 g. Biophysical profile: movements 2/2 breathing 2/2 tone 2/2 Amniotic fluid 2/2 Total score impression: 8 Impression: Single living fetus with a composite sonographic age of 27 weeks 2 days. Estimated heart rate 138 beats per min. Echogenic probable debris layering upon the internal cervical os. Apparent funneling of the cervix which measures approximately 1.3 cm in diameter. Biophysical profile of 8 out of 8. At least 2 probable uterine fibroids. Additional findings as above.
--- NOTE | 2018-11-24 13:42 | OBPN ---
Datetime: 11/24/2018 10:00 IP Progress Impression Other: Irregular FHT's. IP Procedures: Ultrasound; Biophysical Profile Membranes, Provider: Intact FHR - Baseline A Provider: 140 Gestation - Est Wks by US: 27.4 Presentation-Admit: Vertex IP Progress Note Comment: Pt continue with irregular contractions and received one dose of Terbutali ne at about 7:AM and now only ocassional contractions Denies any pains at this time and request to eat Regular diet order and considering D/C home Maternal Tachycardia present and IV fluid bolus given FHT's with adequte V and R However several Variables noted with prolonged Tachycardia US and BPP ordered and will reassess Dr. Mora aware of POC Vital Signs Provider: Reviewed Vital Signs Provider Details: Pulse 115 NICHD Accel Fetus A IP Provider: Prolonged NICHD Variability Prov Fetus A: Moderate 6-25bpm NICHD Decel Fetus A IP Provider: Variable Datetime: 11/24/2018 01:10 Contraction Comments Provider: Irregular Dilatation, Provider: 0 Effacement, Provider: 50 Station, Provider: -3 Datetime: 11/13/2018 14:50 FHR Category Provider Fetus A: Category I
--- NOTE | 2018-11-24 14:02 | OBDCSUM ---
Datetime: 11/24/2018 13:51 Discharged to, Provider: Home Follow up at, Provider: Dr. mora Disch Instr Activity: Bedrest Disch Instr Diet: Regular Discharge Instructions, Provider: Routine instructions given Discharge Diagnosis, Provider: Labor Follow up in weeks, Provider: 2 days or prn Disch Referrals: None Contraception discussed, Prov: No Disch Activity Restrictions: No exercising; No lifting; No driving; Minimize walking; Minimize stair -climbing; No sexual activity; Nothing in vagina - [place], tampons, douche Discharge Comment, Provider: Pt seen and examined per Dr. Mora's request US reviewed and Nl ROMAN, Short Cx and CW previous US and Cerclage in place. No more contractions or pains Tolerated diet well Mild maternal tachycardia but Still not drinking enough water despite counseling Stable and Satisfactory condition and recovery D/W Dr. Mora and requested to be discharged home with instructions and Rx for Macrobid x 7 days Advised to increase po water intake F/Up with Dr. Mora in 2 days, per her instructions Discharge Diagnosis Prov Other: Dehydration UTI NST Reactive BPP 02/18
[2018-11-24 20:00] VITALS: BP 111/63; PULSE 106; RESP 18; TEMP 97.4; O2SAT 100
== END 2018-11-24 14:25 | disposition home or self-care (01) ==
LOC: C.EROB 23:20 → C.4D 11-24 02:57
PROVIDERS: ADMIT Obstetrics & Gynecology; ATTEND Obstetrics & Gynecology
DX: O60.02 Preterm labor without delivery, second trimester (principal); O23.42 Unspecified infection of urinary tract in pregnancy, second trimester; O26.892 Other specified pregnancy related conditions, second trimester; R35.0 Frequency of micturition; J45.909 Unspecified asthma, uncomplicated; R00.0 Tachycardia, unspecified; E86.0 Dehydration; Z3A.27 27 weeks gestation of pregnancy
CPT/HCPCS: 76815; 76818; 80053; 81001; 85025; G0378; J0696; J3105; J7120